=== PATIENT | female | born 1965 | race Hispanic/Latino ===

== ENCOUNTER → 2017-05-05 | Day surgery (SDC) | payer OTHER ==
[~2017-05-05] VITALS: Ht 167.6 cm; Wt 83.9 kg
[~2017-05-05] MED LIST: ALPRAZOLAM0.25 M1 PO; AMLODIPINE BESY10 M1 PO; AMLODIPINE BESYL5 M1 PO; ASPIRIN EC81 M1 PO; ATORVASTATIN CA10 M1 PO; CAL-GEST200 MG PO; CLARINEX5 M1 PO; IMITREX25 M1 PO; LABETALOL HCL100 M1 PO; LABETALOL HCL200 M1 PO; LEVSIN0.125 M1 PO; LISINOPRIL30 M1 PO; LISINOPRIL5 M1 PO; MAGNESIUM400 M1 PO; MULTIVITAMINS1 EAC9 PO; PREVACID30 M1 PO; PRINIVIL10 M1 PO; SENEXON-S TABL1 EACH PO; VITAMIN D2000 UNI1 PO
--- NOTE | 2017-05-05 16:21 | RADIOLOGY REPORT ---
EXAMINATION: XR ANKLE, LEFT CLINICAL INFORMATION: Left ankle ORIF. COMPARISON: Preoperative x-rays 04/22/2017. TECHNIQUE: 5 intraoperative views of the left ankle were obtained. FINDINGS: The images demonstrate placement of a lateral plate and screws traversing and reducing a fracture of the distal fibula. Alignment appears anatomic. On the lateral view there is a minimally displaced fracture of the distal tibia anteriorly. Fluoroscopy time: 1 minute 44 seconds. IMPRESSION: 1. Intraoperative views ORIF left ankle.
--- NOTE | 2017-05-05 17:29 | Operative Report ---
Operative/Inv Procedure Report Surgery Date: 05/05/17 Name of Procedure: Open reduction internal fixation of left distal fibula frature Pre-Operative Diagnosis: Left SER IV ankle fracture Post-Operative Diagnosis: Left SER IV ankle fracture (distal fibula fracture, intact medial malleolus and syndesmosis) Estimated Blood Loss: scant Surgeon/[employer]: Mis Hess MD Anesthesia: general endotracheal tube, block IV Fluids: 1500mL Implants: Arthrex distal fibular plate (6-hole) with 2.7mm locking screws and 3.5mm cortical screws Drains: None Specimens: None Tourniquet: 93min Complications: None Condition: Stable Operative/Procedure Note Note: INDICATION FOR PROCEDURE: Hollie Lopez is a 51-year-old female who sustained a left ankle fracture after slipping on ice. She was initially seen in the [facility] department, where x-rays were obtained and she was provisionally splinted. She was the seen in [facility] office for preoperative evaluation and examination of skin. After discussing risks, benefits, and alternatives to surgical stabilization of her left ankle fracture, she is to proceed with surgery. OPERATIVE REPORT: Ms. Lopez arrived at [facility] on 05/05/2017. She was met in the preoperative area, were her operative extremity was marked, her skin was evaluated, and her medical history was reviewed. Patient was taken to the operating room and placed supine on the operating room table. An SCD was applied to the right lower extremity. The patient was induced under general anesthesia. A regional block was then performed by the anesthesia service. IV antibiotics were administered for prophylaxis. A bump was placed under the left hip and a nonsterile tourniquet applied to the left upper extremity. The left lower leg was then prepped and draped in the usual sterile fashion. A timeout procedure was performed which the patient, the operative extremity, and the planned procedure were verified. The left lower extremity was exsanguinated using an Esmarch bandage, and tourniquet raised to 300 mmHg. The bony landmarks were marked and verified with fluoroscopy. An incision was made over the posterolateral ankle, overlying the distal fibula where her fracture was located. This is taken through the skin and subcutaneous tissues down to the overlying fascia, which was sharply divided. The fracture was identified and the surrounding periosteum split carefully. The fracture site was debrided for better visualization of the fracture ends. The fracture was oblique, but the posterior spike was butterfly fragment connected by soft tisse and comminution was noted at the fracture site. Using combination of freer elevators and irrigation, the fracture was cleaned and carefully realigned. Fracture was held in place using clamps, however the bone was very soft and deformed easily. A distal fibular locking plate was selected that would span the fracture site with adequate fixation above and below the fracture. The plate was positioned over the fracture that was provisionally reduced; the plate was secured to the distal fracture fragment using locking screws and to the fibular shaft using cortical screws. After verifying the alignment of the fracture using fluoroscopy, the remaining screws were placed. Once the distal fibula was adequately fixed, an external rotation stress test was performed intraoperatively. The foot was placed in slight internal rotation to obtain a mortise view. The tibial was then held in internal rotation and the foot was externally rotated; a stress view was obtained and no instability seen on the medial side or across the mortise. There was no displacement syndesmosis, and no additional syndesmotic fixation was necessary. The wound was irrigated with normal saline. The incision was thoroughly irrigated and then closed in layers using 0 Vicryl, 2-0 Vicryl, and interrupted 3-0 nylon for skin. The tourniquet was released after 93 minutes. The wound was dressed with Xeroform and 4 x 4 gauze which was secured with webril. A well-padded posterior and U splint was applied. The patient was woken from general anesthesia and taken from the operating room to the post- anesthesia care unit in stable condition.
== END ==
LOC: STS 02:09
DX: S82.892A Other fracture of left lower leg, initial encounter for closed fracture (principal); W00.0XXA Fall on same level due to ice and snow, initial encounter; I10 Essential (primary) hypertension; E66.9 Obesity, unspecified; Z86.79 Personal history of other diseases of the circulatory system
CPT/HCPCS: 73600-LT; 81025; C1713; J0690; J2250